=== PATIENT | female | born 1995 | race Caucasian/White ===

== ENCOUNTER 2018-10-06 21:36 | Emergency (ER) | payer OTHER ==
--- NOTE | 2018-10-06 21:48 | EDPHY ---
H & P Stated Complaint: localized eye swelling-recent stye Time Seen by Provider: 10/06/18 21:47 HPI/ROS: HPI: This is a 23-year-old female who presents with Chief Complaint: localized eye swelling-recent stye Location: Bilateral eye Quality: Swelling Duration: 1 hr prior to arrival Signs and Symptoms: no fever, no nausea, no vomiting, no photophobia, no noise sensitivity, no neck stiffness, no ear pain, no tinnitus, no nasal congestion, no sinus pressure, no weakness, no radiation, no aura, no shortness of breath Timing: Acute Severity: Moderate Context: Patient is a student at [employer], plate intramural basketball and on the way home started to sneeze give bilateral itchy watery eyes. She reports that she went back to her home, removed her contact lenses, took off her mascara and took a shower. When she got out of the shower she had 50% worsening of her eyes with swelling. She reports that a similar occurrence occurred on the left eye prior to Thanksgiving. She thought she may have had a stye at that time and it was treated with warm compresses. She was seen by Ophthalmology and given a normal exam. She denies history of anaphylaxis and does not carry an EpiPen. She denies any new food, lotions, detergents, perfumes. Modifying Factors: She took 2 pills of Benadryl prior to arrival Comment: ROS: A comprehensive 10 system review of systems is otherwise negative aside from elements mentioned in the history of present illness. MEDICAL/SURGICAL/SOCIAL HISTORY: Medical history: Generally healthy. Takes oral control pills. LMP 2-3 weeks ago. Surgical history: [place] teeth removal, tonsillectomy and adenoidectomy Social history: Family history noncontributory. General appearance: Awake and alert, nontoxic-appearing young adult white female, cooperative HEENT: Atraumatic and normocephalic, PERRL, EOMI. Nares patent; no rhinorrhea; no nasal mucosal edema. Tympanic membranes clear. Oropharynx clear, no tongue swelling, no postpharyngeal edema, no exudate and moist pink mucosa. Airway patent. No lymphadenopathy. No meningismus. Cardiovascular: Normal S1/S2, regular rate, regular rhythm, without murmur rub or gallop. NEUROLOGICAL: no focal neuro deficits. GCS 15. Cranial nerves 2-12 grossly intact. Patient is speaking normal and in complete sentences. Visual Acuity: noted from Nurse's notes. Pupils: equal round and reactive to light. EOMI. Lids: Moderate bilateral periorbital edema or swelling Skin: no proptosis, no periorbital erythema no vesicles Conjunctivae: not injected, no discharge Source: Patient Exam Limitations: No limitations - Personal History LMP (Females 10-55): 15-21 Days Ago Current Tetanus Diphtheria and Acellular Pertussis (TDAP): Yes - Medical/Surgical History Hx Asthma: No Hx Chronic Respiratory Disease: No Hx Diabetes: No Hx Cardiac Disease: No Hx Renal Disease: No Hx Cirrhosis: No Hx Alcoholism: No Hx HIV/AIDS: No Hx Splenectomy or Spleen Trauma: No Other PMH: TNA, wisdom teeth - Social History Smoking Status: Never smoked Constitutional: Initial Vital Signs Temperature (C) 36.5 C 10/06/18 21:39 Heart Rate 62 10/06/18 21:39 Respiratory Rate 16 10/06/18 21:39 Blood Pressure 143/94 H 10/06/18 21:39 O2 Sat (%) 94 10/06/18 21:39 O2 Delivery Mode Room Air Allergies/Adverse Reactions: No Known Allergies Allergy (Unverified 10/06/18 21:38) Home Medications: Medication Instructions Recorded Bcp 10/06/18 Famotidine [Pepcid 20 MG (*)] 20 mg PO BID 3 Days tab 10/06/18 Keflex 10/06/18 predniSONE 40 mg PO DAILY 3 Days tab 10/06/18 Medical Decision Making ED Course/Re-evaluation: Vital signs reviewed and stable upon arrival. Placed on equipment monitor phototypesetting. Maintaining airway with no respiratory distress. IV access obtained and given IV Solu-Medrol 125 mg, IV Benadryl 50 mg, IV Zantac 50 mg and 1 L normal saline reassessed patient 2 hr later, 50% improvement in symptoms. Given prescription for steroids x5 days, Pepcid x3 days and Benadryl p.r.n. Patient was advised to follow up with an baggage and mail agent. This patient was seen under the supervision of my secondary supervising physician. I evaluated care for this patient independently. Discussed this patient with Dr. Prieto who did not see the patient. Differential Diagnosis: Differential diagnosis includes but is not limited to angioedema, anaphylaxis, allergic reaction, periorbital cellulitis. - Data Points Medications Given: Discontinued Medications Diphenhydramine HCl (Benadryl Injection) 50 mg IVP EDNOW ONE Stop: 10/06/18 21:53 Last Admin: 10/06/18 21:59 Dose: 50 mg Sodium Chloride (Ns) 1,000 mls @ 0 mls/hr IV ONCE ONE; Wide Open PRN Reason: Protocol Stop: 10/06/18 21:53 Last Admin: 10/06/18 21:57 Dose: 1,000 mls Methylprednisolone Sodium Succinate (Solu-Medrol) 125 mg IVP EDNOW ONE Stop: 10/06/18 21:53 Last Admin: 10/06/18 21:58 Dose: 125 mg Ranitidine HCl (Zantac) 50 mg IVP EDNOW ONE Stop: 10/06/18 21:53 Last Admin: 10/06/18 21:59 Dose: 50 mg Departure - Departure Disposition: Home, Routine, Self-Care Clinical Impression: Orbital swelling Allergic reaction Qualifiers: Encounter type: initial encounter Qualified Code(s): T78.40XA - Allergy, unspecified, initial encounter Condition: Good Instructions: Allergy Testing (ED), Allergies (ED) Additional Instructions: Take steroid taper daily x 3 days. Take Pepcid twice daily x3 days. Take Benadryl 25-50 mg every 4-6 hours as needed for swelling, itching, allergic reaction. Follow-up with an baggage and mail agent in the next 1-2 weeks for further testing. Please avoid using your hands to touch your eyes. Wash your hands frequently with mild soap and water. Apply cool compresses for 15-20 minutes at a time several times per day for the next 1-2 days. Eye Complaint: Return to the Emergency Department for any increase in eye pain, redness, swelling, discharge or any worsening of your vision. Referrals: Rosa Amaya MD [[facility] [place] - As per Instructions Stand Alone Forms: School Excuse Prescriptions: Famotidine [Pepcid 20 MG (*)] 20 mg PO BID 3 Days tab predniSONE 40 mg PO DAILY 3 Days tab
[2018-10-06] MEDS ORDERED: NS 1,000 ML IV ONE (21:52)
[2018-10-06] MEDS ORDERED: RANITIDINE 50 MG/2 ML VIAL IVP ONE (21:52)
[2018-10-06] MEDS ORDERED: methylPREDNISolone SOD SUCC 125 MG/2 ML VIAL IVP ONE (21:52)
[2018-10-06 23:52] VITALS: BP 119/66
== END 2018-10-06 23:52 | disposition home or self-care (01) ==
DX: H57.89 Other specified disorders of eye and adnexa (principal); T78.40XA Allergy, unspecified, initial encounter; E86.9 Volume depletion, unspecified
CPT/HCPCS: 96374; J1200; J2780; J2930

== ENCOUNTER 2019-02-04 17:02 | Emergency (ER) | payer OTHER ==
[2019-02-04] MEDS ORDERED: RANITIDINE 50 MG/2 ML VIAL IVP ONE (17:04)
[2019-02-04] MEDS ORDERED: EPINEPHrine 1 MG/ML INJ IM ONE (17:04)
[2019-02-04] MEDS ORDERED: methylPREDNISolone SOD SUCC 125 MG/2 ML VIAL IVP ONE (17:04)
--- NOTE | 2019-02-04 17:24 | EDPHY ---
HPI/HX/ROS/PE/MDM Narrative: CHIEF COMPLAINT:Allergic reaction HPI: The patient is a 23-year-old female with no significant past medical history. She was seen in the emergency department in October for sudden onset of facial swelling that was thought to possibly be allergic. She presents to the emergency department today after developing severe facial swelling, shortness of breath and diffuse hives approximately 1 hr ago. The patient was going for run out doors at the time. REVIEW OF SYSTEMS: Aside from elements discussed in the HPI, a comprehensive 10-point review of systems was reviewed and is negative. PMH: None significant. SOCIAL HISTORY: Single. Denies drug abuse. PHYSICAL EXAM: General:Patient is alert, in no moderate distress. ENT: Diffuse periorbital and facial swelling is noted. Neck: Normal inspection. Full range of motion. Respiratory: Tachypneic but no stridor or wheeze.. Breath sounds normal bilaterally. Cardiovascular: Tachycardic rate. Strong peripheral pulses. Normal cap refill. Abdomen:The abdomen is nontender to palpation. There are no peritoneal signs. There are normal bowel sounds. Back: Normal to inspection. No tenderness to palpation. Skin: Diffuse urticaria noted on arms and legs. Extremities: Normal appearance. Full range of motion. Neuro: Oriented x3. Normal motor function. Normal sensory function. ED Course: The patient was treated with IV fluids, IM epinephrine, IV pepcid and steroids. On re-evaluation, the patient is comfortable and skin findings have greatly improved. She would like to go home. MDM: This is a young healthy female who presents with acute anaphylaxis of unknown etiology. She responded well to typical therapy in the ED. We discussed need for felling bucking supervisor follow-up and importance of epi-pen. She will be discharged with rx for this as well as prednisone burst. - Data Points Medications Given: Discontinued Medications Diphenhydramine HCl (Benadryl Injection) 50 mg IVP EDNOW ONE Stop: 02/04/19 17:05 Last Admin: 02/04/19 17:16 Dose: 50 mg Epinephrine HCl (Epinephrine) 0.3 mg IM EDNOW ONE Stop: 02/04/19 17:05 Last Admin: 02/04/19 17:14 Dose: 0.3 mg Methylprednisolone Sodium Succinate (Solu-Medrol) 125 mg IVP EDNOW ONE Stop: 02/04/19 17:05 Last Admin: 02/04/19 17:14 Dose: 125 mg Ranitidine HCl (Zantac) 50 mg IVP EDNOW ONE Stop: 02/04/19 17:05 Last Admin: 02/04/19 17:14 Dose: 50 mg General Time Seen by Provider: 02/04/19 17:04 Initial Vital Signs: Initial Vital Signs Temperature (C) 36.5 C 02/04/19 17:08 Heart Rate 124 H 02/04/19 17:08 Respiratory Rate 22 H 02/04/19 17:08 Blood Pressure 82/64 L 02/04/19 17:08 O2 Sat (%) 81 L 02/04/19 17:08 O2 Delivery Mode Room Air O2 (L/minute) 2 Allergies/Adverse Reactions: No Known Allergies Allergy (Verified 02/04/19 17:05) Home Medications: Medication Instructions Recorded Bcp 10/06/18 EPINEPHrine [Epipen 0.3 MG] 0.3 mg IM ONCE #2 syr 02/04/19 predniSONE 60 mg PO DAILY #9 tab 02/04/19 Departure - Departure Disposition: Home, Routine, Self-Care Clinical Impression: Acute anaphylaxis Condition: Good Instructions: Anaphylaxis (ED) Additional Instructions: Follow-up with your primary doctor within 72 hours. Use [id number] Benadryl as directed for itching. Return to the Emergency Department for shortness of breath, difficulty swallowing, difficulty breathing, worsening of rash, fever or other worsening of condition. When symptoms have completely subsided, follow up with an felling bucking supervisor soon as possible to determine the cause of the allergic reaction. Use EpiPen in case of allergic emergency. Referrals: DAGOBERTO VIEIRA MD [Other] - As per Instructions Prescriptions: EPINEPHrine [Epipen 0.3 MG] 0.3 mg IM ONCE #2 syr predniSONE 60 mg PO DAILY #9 tab
[2019-02-04 20:05] VITALS: BP 115/75
== END 2019-02-04 20:05 | disposition home or self-care (01) ==
DX: T78.2XXA Anaphylactic shock, unspecified, initial encounter (principal)
CPT/HCPCS: 96374